=== PATIENT | male | born 1960 | race Caucasian/White ===

== ENCOUNTER → 2016-07-28 | Outpatient (CLI) | payer MEDICAID, OTHER ==
[~2016-07-28] MED LIST: ALBUTEROL SULFATE 2.5 MG/0.5 ML INH NEB SOLN INH ONE; PENTAMIDINE ISETH NEB 300 MG SOLN VIAL INH ONE
== END ==
LOC: M CARPUL 14:00
PROVIDERS: ATTEND Internal Medicine Hematology & Oncology
DX: D84.9 Immunodeficiency, unspecified (principal)